=== PATIENT | female | born 1965 | race Caucasian/White ===

== ENCOUNTER 2018-07-17 08:28 | Outpatient (CLI) | payer OTHER | END 2018-07-17 23:59 | disposition home or self-care (01) | LOC: CVU 08:28 | PROVIDERS: ATTEND Internal Medicine Cardiovascular Disease | DX: R55 Syncope and collapse (principal); R07.89 Other chest pain | CPT/HCPCS: 93017; 93306 ==

== ENCOUNTER 2018-09-08 09:07 | Day surgery (SDC) | payer OTHER ==
[~2018-09-08] VITALS: Ht 167.6 cm; Wt 61.4 kg
[2018-09-08 09:34] VITALS: BP 131/68
[2018-09-08] MEDS ORDERED: LIDOCAINE 2%, 20ML ONE (09:37)
== END 2018-09-08 10:22 | disposition home or self-care (01) ==
LOC: CACL 09:07
PROVIDERS: ATTEND Internal Medicine Cardiovascular Disease
DX: R55 Syncope and collapse (principal); I34.1 Nonrheumatic mitral (valve) prolapse; Z82.49 Family history of ischemic heart disease and other diseases of the circulatory system; Z88.2 Allergy status to sulfonamides; Z88.5 Allergy status to narcotic agent; Z88.1 Allergy status to other antibiotic agents
CPT/HCPCS: 33285; C1764

== ENCOUNTER 2018-10-20 10:52 | Observation (INO) | payer OTHER ==
[~2018-10-20] VITALS: Ht 167.6 cm; Wt 63.5 kg
[2018-10-20] MEDS ORDERED: SODIUM CHLORIDE 0.9% 1,000 ML IV SCH (11:15)
[2018-10-20] MEDS ORDERED: CEFAZOLIN PMX 1GM/50ML 50 ML IVPB ONE (11:30)
[2018-10-20] MEDS ORDERED: PLEASE ENTER HEIGHT AND WEIGHT MC SCH (11:30)
[2018-10-20 11:32] VITALS: BP 114/65
[2018-10-20 12:08] LABS: BASOPHILS # (AUTO) 0.03 x10^3/uL (0-0.1); BASOPHILS % (AUTO) 1 % (0-1); EOSINOPHILS % (AUTO) 2 % (1-7); LYMPHOCYTES # (AUTO) 1.67 x10^3/uL (1-3.4); LYMPHOCYTES % (AUTO) 34 % (22-44); MD NO; MEAN CORPUSCULAR HGB CONC 32.6 g/dL (32.4-35.8); MEAN CORPUSCULAR VOLUME 85.8 fL (80-100); MEAN PLATELET VOLUME 8.1 fL (7.4-10.4); MONOCYTES % (AUTO) 8 % (2-9); NEUTROPHILS # (AUTO) 2.72 x10^3/uL (1.8-6.8); NEUTROPHILS % (AUTO) 55 % (42-75); PLATELET COUNT 248 x10^3/uL (130-400); RED BLOOD COUNT 4.99 x10^6/uL (3.82-5.3); RED CELL DISTRIBUTION WIDTH 13.3 % (9.6-15.2)
[2018-10-20] MEDS ORDERED: CETI10CA PO (12:16)
[2018-10-20] MEDS ORDERED: FLUT9.9S NAS (12:17)
[2018-10-20] MEDS ORDERED: CELE200C PO (12:18)
[2018-10-20] MEDS ORDERED: LORA10TA72 PO (12:18)
[2018-10-20 12:20] LABS: ANION GAP 8 mmol/L (5-15); CALCIUM 9.3 mg/dL (8.5-10.1); CHLORIDE 107 mmol/L (98-107); CREATININE 0.72 mg/dL (0.55-1.02)
[2018-10-20] MEDS ORDERED: CEFAZOLIN PMX 1GM/50ML 50 ML ONE (13:49)
[2018-10-20] MEDS ORDERED: LIDOCAINE 1%, 20ML ONE ×2 (13:49→14:52)
[2018-10-20] MEDS ORDERED: CEFAZOLIN 1,000 MG ONE (13:49)
[2018-10-20] MEDS ORDERED: FENTANYL PF 250 MCG/5ML ONE (13:49)
[2018-10-20] MEDS ORDERED: MIDAZOLAM 1 MG/ML, 5ML ONE (13:49)
[2018-10-20] MEDS ORDERED: ONDANSETRON 2MG/ML, 2ML ONE (13:59)
[2018-10-20] MEDS ORDERED: ZOLPIDEM 5MG TABLET PO PRN ×2 (15:30→16:00)
[2018-10-20] MEDS ORDERED: HOLD MEDICATION MC PRN (15:30)
[2018-10-20] MEDS: ONDANSETRON 2MG/ML, 2ML IV PRN ×2 (16:47→22:53)
[2018-10-20] MEDS ORDERED: PROMETHAZINE 25 MG/ML, 1ML IM PRN (18:00)
[2018-10-20 18:57] VITALS: BP 122/45
[2018-10-20] MEDS: FLUTICASONE NASAL SPRAY 16GM NAS SCH (21:00)
[2018-10-20] MEDS ORDERED: LORATADINE 10 MG TABLET PO SCH (21:00)
[2018-10-20] MEDS ORDERED: OXYcodone/APAP 5/325MG TABLET PO PRN (21:00)
[2018-10-20] MEDS: SODIUM CHLORIDE FLUSH 10ML SYR IVF SCH (21:03)
[2018-10-20] MEDS: CEFAZOLIN PMX 1GM/50ML 50 ML IVPB SCH (22:53)
[2018-10-21 00:59] VITALS: BP 100/68
[2018-10-21] MEDS: CEFAZOLIN PMX 1GM/50ML 50 ML IVPB SCH (06:37)
[2018-10-21 07:42] VITALS: BP 103/68
[2018-10-21] MEDS ORDERED: ACET325T14 PO (08:50)
[2018-10-21] MEDS ORDERED: TEMPLATE NON-FORMULARY MED. (Cetirizine Hcl** (Zyrtec**) 10 MG) PO SCH (09:00)
[2018-10-21] MEDS ORDERED: ACETAMINOPHEN 325 MG TABLET PO PRN (09:00)
[2018-10-21] MEDS: SODIUM CHLORIDE FLUSH 10ML SYR IVF SCH (09:00)
[2018-10-21] MEDS: FLUTICASONE NASAL SPRAY 16GM NAS SCH (09:00)
== END 2018-10-21 10:45 | disposition home or self-care (01) ==
LOC: CACL 10:52 → 5SO 15:35 → CACL 17:24 → 5SO 17:24 → DCLOUNGE 10-21 10:45
PROVIDERS: ADMIT Internal Medicine Cardiovascular Disease; ATTEND Internal Medicine Cardiovascular Disease
DX: I34.1 Nonrheumatic mitral (valve) prolapse (principal); R55 Syncope and collapse; Z79.899 Other long term (current) drug therapy; Z82.49 Family history of ischemic heart disease and other diseases of the circulatory system
CPT/HCPCS: 33208; 36415; 71045; 71046; 80048; 85025; 96365; 96366; 96375; 96376; 99156; 99157; C1779; C1785; C1892; G0378; J0690; J2250; J2405; J3010; J3490

== ENCOUNTER 2020-06-18 14:55 | Emergency (ER) | payer OTHER ==
[~2020-06-18] VITALS: Ht 167.6 cm; Wt 58.0 kg
[~2020-06-18 14:55] MED LIST: ACET325T14 PO; CELE200C PO; CETI10CA PO; FLUT9.9S NAS; LORA10TA72 PO
[2020-06-18 15:25] LABS: BASOPHILS % (AUTO) 1 % (0-1); EOSINOPHILS % (AUTO) 1 % (1-7); LYMPHOCYTES % (AUTO) 28 % (22-44); MEAN CORPUSCULAR HEMOGLOBIN 29.6 pg (27.0-34.8); MEAN PLATELET VOLUME 7.9 fL (7.4-10.4); MONOCYTES % (AUTO) 7 % (2-9); NEUTROPHILS % (AUTO) 63 % (42-75); PLATELET COUNT 223 x10^3/uL (130-400); RED BLOOD COUNT 4.96 x10^6/uL (3.82-5.3); RED CELL DISTRIBUTION WIDTH 13.3 % (9.6-15.2)
[2020-06-18 15:26] LABS: MD NO
[2020-06-18] MEDS ORDERED: ASPIRIN 81 MG TABLET CHEW PO ONE (15:30)
[2020-06-18 15:37] LABS: ALANINE AMINOTRANSFERASE 27 U/L (12-78); ALBUMIN 4.5 g/dL (3.4-5.0); ANION GAP 7 mmol/L (5-15); CALCIUM 9.5 mg/dL (8.5-10.1); CHLORIDE 109 mmol/L (98-107); CREATININE 0.93 mg/dL (0.55-1.02)
[2020-06-18 15:41] LABS: ALKALINE PHOSPHATASE 81 U/L (45-117); BILIRUBIN,TOTAL 0.4 mg/dL (0.2-1.0); TOTAL PROTEIN 7.7 g/dL (6.4-8.2); TROPONIN I < 0.015 ng/mL (0.000-0.045)
--- NOTE | 2020-06-18 16:07 | NUR ---
roofer metal: pt from lobby to room 24
[2020-06-18] MEDS ORDERED: ASPIRIN 81 MG TABLET CHEW ONE (16:40)
[2020-06-18 18:09] LABS: TROPONIN I < 0.015 ng/mL (0.000-0.045)
[2020-06-18 18:59] VITALS: BP 112/65
--- NOTE | 2020-06-18 18:59 | NUR ---
Pt understands and agrees with discharge plan and instructions.
== END 2020-06-18 19:15 | disposition home or self-care (01) ==
LOC: ED 17:28
DX: R07.2 Precordial pain (principal); R07.89 Other chest pain; Z95.0 Presence of cardiac pacemaker; Z88.9 Allergy status to unspecified drugs, medicaments and biological substances; Z88.2 Allergy status to sulfonamides
CPT/HCPCS: 36415; 71045; 80053; 84484; 85025; 93005; 99285

== ENCOUNTER → 2020-09-02 | Outpatient (CLI) | payer OTHER ==
[~2020-09-02] MED LIST changes: +REGADENOSON 0.4 MG/5 ML SYRINGE ONE
== END | disposition home or self-care (01) ==
LOC: CFH 06:52
PROVIDERS: ATTEND Internal Medicine Cardiovascular Disease
DX: I34.1 Nonrheumatic mitral (valve) prolapse (principal); R55 Syncope and collapse; R06.02 Shortness of breath; R07.89 Other chest pain
CPT/HCPCS: 78452; 93017; 93306; A9502; J2785

== ENCOUNTER 2020-09-05 14:20 | Emergency (ER) | payer OTHER ==
[~2020-09-05] VITALS: Ht 167.6 cm; Wt 57.6 kg
[~2020-09-05 14:20] MED LIST changes: -REGADENOSON 0.4 MG/5 ML SYRINGE ONE
--- NOTE | 2020-09-05 14:50 | NUR ---
CAMPUS RECEPTIONIST: PT CALLED FROM LOBBY, NO ANSWER. MULT AU MATIC OPERATOR STATES PT IN RESTROOM. WILL TRY TO CALL AGAIN TO ROOM PT
--- NOTE | 2020-09-05 14:59 | NUR ---
MAMMAL CONTROL AGENT: PT AMBULATORY TO ROOM FROM LOBBY WITH STEADY GAIT AT THIS TIME WITH EDTA KRISS
[2020-09-05] MEDS ORDERED: ASPIRIN 81 MG TABLET CHEW PO ONE (15:00)
[2020-09-05] MEDS ORDERED: ASPIRIN 81 MG TABLET CHEW ONE (15:02)
--- NOTE | 2020-09-05 15:13 | NUR ---
PT TO ROOM 31 W/ C/O SOB AND CP STARTED AT 1300 TODAY AFTER PT STATES SHE WAS WALKING HER DOG. STATES SHE COULDN'T CATCH HER BREATHE. 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 PT RESTING ON GURNEY. NADN. MONITORS APPLIED. VSS. FAMILY AT BEDSIDE.
[2020-09-05 15:19] LABS: BASOPHILS % (AUTO) 1 % (0-1); EOSINOPHILS % (AUTO) 2 % (1-7); LYMPHOCYTES % (AUTO) 35 % (22-44); MEAN CORPUSCULAR HEMOGLOBIN 29.8 pg (27.0-34.8); MEAN CORPUSCULAR HGB CONC 33.5 g/dL (32.4-35.8); MEAN PLATELET VOLUME 7.8 fL (7.4-10.4); MONOCYTES % (AUTO) 8 % (2-9); NEUTROPHILS % (AUTO) 55 % (42-75); PLATELET COUNT 202 x10^3/uL (130-400); RED BLOOD COUNT 4.61 x10^6/uL (3.82-5.3); RED CELL DISTRIBUTION WIDTH 13.8 % (9.6-15.2)
[2020-09-05 15:24] LABS: ALANINE AMINOTRANSFERASE 29 U/L (12-78); ALBUMIN 4.2 g/dL (3.4-5.0); ANION GAP 5 mmol/L (5-15); CALCIUM 9.5 mg/dL (8.5-10.1); CHLORIDE 109 mmol/L (98-107); CREATININE 0.67 mg/dL (0.55-1.02)
[2020-09-05 15:28] LABS: MD NO
[2020-09-05 15:29] LABS: ALKALINE PHOSPHATASE 74 U/L (45-117); BILIRUBIN,TOTAL 0.4 mg/dL (0.2-1.0); TOTAL PROTEIN 7.1 g/dL (6.4-8.2); TROPONIN I < 0.015 ng/mL (0.000-0.045)
[2020-09-05 16:15] VITALS: BP 111/58
--- NOTE | 2020-09-05 16:16 | NUR ---
PT RESTING ON GURNEY. NADN. JOHN.
== END 2020-09-05 16:27 | disposition home or self-care (01) ==
LOC: ED 16:26
DX: R07.89 Other chest pain (principal); R06.00 Dyspnea, unspecified
CPT/HCPCS: 36415; 71045; 80053; 84484; 85025; 93005; 99285

== ENCOUNTER → 2020-09-08 | Outpatient (CLI) | payer OTHER | END | disposition home or self-care (01) | LOC: CFH 09:13 | PROVIDERS: ATTEND Registered Nurse | DX: R91.8 Other nonspecific abnormal finding of lung field (principal); J98.4 Other disorders of lung; Z98.82 Breast implant status | CPT/HCPCS: 71250 ==

== ENCOUNTER 2021-01-21 08:48 | Outpatient (CLI) | payer OTHER | END 2021-01-21 23:59 | disposition home or self-care (01) | LOC: CFH 08:48 | PROVIDERS: ATTEND Internal Medicine | DX: R91.8 Other nonspecific abnormal finding of lung field (principal); J98.4 Other disorders of lung | CPT/HCPCS: 71250 ==